=== PATIENT | male | born 1980 | race Caucasian/White ===

== ENCOUNTER 2018-05-23 16:25 | Inpatient (IN) | payer BC, OTHER ==
[~2018-05-23] VITALS: Ht 190.5 cm; Wt 77.1 kg
--- NOTE | 2018-05-23 18:45 | NUR ---
PRE ASSESSMENT PATIENT MET IN INTAKE OFFICE. VS BP138/87, HR 100, O2 99% HEIGHT IS 6'3" PATIENT IS BEING ADMITTED TO [facility] FOR A MEDICALLY SUPERVISED WITHDRAWAL FROM ALCOHOL ( WINE) HISTORY: ALCOHOL ( WINE) 4000ML/DAY FOR 8 DAYS LAST CONSUMED 4/ [address] HERE TODAY BUT HAD ALSO BEEN UP ALL NIGHT DRINKING WINE. PATIENT STATES HE HAS BEEN SOBER THE PAST 1.5 YEARS AND RELAPSED 8 DAYS AGO HE STATES HE HAS BEEN TO DETOX X 4 IN THE PAST AND REHAB X 2 PATIENT WILL BE ADMITTED TO THE FLOOR PATIENT IS MILDLY INTOXICATED, CIWA 12
--- NOTE | 2018-05-23 19:15 | NUR ---
ADMISSION NOTE Pt arrived on the unit at 1915 on 05/23/18 for medically supervised withdrawal from ETOH. Skin and body check completed, skin intact and no contraband found. Pt provided UDS. Pt is 65 and weighs 170 lbs. Pt is currently intoxicated from ETOH and is without withdrawal, last intake one hour prior to arrival. Pt presents with anxiety, agitation, flushed skin, headache 2/10, restlessness, slumped posture and is tearful. Pt has ETOH smell in breath. PEERLA. Respirations even and unlabored, lung sounds clear. Last BM 2 days ago, pt states This is normal for me, I dont feel constipated. Vital signs: 137/79, HR 76, RR 16, 02 100%, T 98.2, Pain 2/10. Substance Use History: Wine 4000 ml daily, last intake of 4000 ml today, last consumed 1 hour prior to arrival on the plane, at this rate for 8 days since relapse. Pt reports he typically gets the following S/S of withdrawal: Anxiety, restlessness, sweats, chills, nausea, tremors. Pt is full code, regular diet, NKA and on fall/seizure precautions. No known seizure hx. Pt reports PMH of anxiety, depression, HTN, PVCs (Had ECHO 6 months ago). Pt smokes 1 pack daily, pt states I really only smoke when I drink. Pt is not a candidate for MRSA, denies being hospitalized or in half-way in past 30 days. Pt reports having a PCP, Dr. Parra. Pt reports that his sister has hx of opioid abuse and mother has hx of ETOH abuse. Pt reports his longest period of sobriety was 1 year and 8 months, relapsed 8 days ago. 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 Pt states that his partner is his primary internal motivator to stay sober. Pt reports this admission will be different d/t his partner having more support and him being able to acknowledge that he wants to stay sober for mainly himself. Pt reports the following treatment history: [facility] in [place] for 35 days in 2015, Pt reports doing detox at ER in [place] in 2014 and [place] in 2014, and Recovery in [place] for 8 days in 2013. Pt has no kids, currently employed, and lives with his partner in [place]. Oriented pt to room and unit, educated pt about rules and expectations of unit and how to use call light. Pt verbalized understanding. Addendum: 05/24/18 at 0047 by MERON JUNG RN Additional: Initial DANNAWA lorared, pt acutely intoxicated.
[2018-05-23 20:00] VITALS: BP 137/79
[2018-05-23] MEDS ORDERED: ACETAMINOPHEN 325 MG TABLET PO PRN (20:45)
[2018-05-23] MEDS ORDERED: LORAZEPAM 1 MG TABLET PO PRN (20:45)
[2018-05-23] MEDS ORDERED: ONDANSETRON 4 MG/2 ML VIAL IM PRN (20:45)
[2018-05-23] MEDS ORDERED: MIRALAX 17 GM POWD.PACK PO PRN (20:45)
[2018-05-23] MEDS ORDERED: DICYCLOMINE HCL 20 MG TABLET PO PRN (20:45)
[2018-05-23] MEDS ORDERED: LORAZEPAM 2 MG/1 ML VIAL IM PRN (20:45)
[2018-05-23] MEDS ORDERED: IBUPROFEN 400 MG TABLET PO PRN (20:45)
[2018-05-23] MEDS ORDERED: diphenhydrAMINE 50 MG CAPSULE PO PRN (20:45)
[2018-05-23] MEDS ORDERED: LOPERAMIDE HCL 2 MG CAPSULE PO PRN ×2 (20:45)
[2018-05-23] MEDS ORDERED: THIAMINE HCL 200 MG/2 ML VIAL IM ONE (21:00)
[2018-05-23 21:25] LABS: BASOPHILS % (AUTO) 0.4 % (0.0-2.0); EOSINOPHILS % (AUTO) 0.4 % (0.0-7.0); HEMATOCRIT 43.7 % (36.7-47.1); HEMOGLOBIN 15.4 g/dL (12.5-16.3); LYMPHOCYTES % (AUTO) 37.3 % (20.5-51.5); MEAN CORPUSCULAR HEMOGLOBIN 31.7 uug (23.8-33.4); MEAN CORPUSCULAR HGB CONC 35 g/dL (32.5-36.3); MEAN CORPUSCULAR VOLUME 89.9 fL (73.0-96.2); MONOCYTES # (AUTO) 0.3 K/uL (2.0-10.0); MONOCYTES % (AUTO) 3.2 % (0.0-11.0); NEUTROPHILS # (AUTO) 6.3 K/uL (1.8-8.9); NEUTROPHILS % (AUTO) 58.7 % (38.5-71.5); PLATELET COUNT (AUTO) 165 K/uL (152-348); RED BLOOD CELL COUNT(AUTO) 4.86 MIL/uL (4.06-5.63); WHITE BLOOD COUNT (AUTO) 10.7 K/uL (3.6-10.2)
[2018-05-23 21:40] LABS: BILIRUBIN,TOTAL 0.7 mg/dL (0.2-1.0); MAGNESIUM 2.2 mg/dL (1.8-2.4); POTASSIUM 3.8 mmol/L (3.5-5.1); TOTAL PROTEIN, SERUM 8.2 g/dL (6.4-8.2)
[2018-05-23 21:54] LABS: THYROID STIMULATING HORMONE 0.374 mIU/mL (0.358-3.740)
[2018-05-23 22:53] LABS: *AMPHETAMINE, URINE NEGATIVE (NEGATIVE); *BARBITURATE, URINE NEGATIVE (NEGATIVE); *CANNABINOID, URINE NEGATIVE (NEGATIVE); *COCCAINE, URINE NEGATIVE (NEGATIVE); *OPIATE, URINE NEGATIVE (NEGATIVE); *PHENCYCLIDINE SCREEN,URINE NEGATIVE (NEGATIVE)
[2018-05-23] MEDS ORDERED: MULT-416 PO (23:41)
[2018-05-23] MEDS ORDERED: BUPR-51 PO (23:41)
[2018-05-23] MEDS ORDERED: AMOX-421 PO (23:41)
[2018-05-23] MEDS ORDERED: [UNRECOGNIZED DRUG - CODE] PO (23:41)
[2018-05-23] MEDS ORDERED: FLUT9.9S16 NS (23:41)
[2018-05-23] MEDS ORDERED: DISU250T7 PO (23:41)
[2018-05-23] MEDS ORDERED: CLON0.2T PO (23:41)
[2018-05-24] VITALS (9 sets, daily range): BP systolic 128–150; BP diastolic 77–101
--- NOTE | 2018-05-24 | NUR ---
CIWA DEFERRED Pt laying in bed with eyes closed, CIWA deferred, to be assessed when pt is awake per orders. Respirations even and unlabored. Safety measures in place. Call light within reach. Will continue to monitor.
[2018-05-24] MEDS: CLONIDINE HCL 0.1 MG TABLET PO PRN ×3 (00:35→23:28)
--- NOTE | 2018-05-24 00:35 | NUR ---
PRN VISTARIL, CLONIDINE AND MOTRIN ADMINISTERED Pt states, "I don't feel like I'm withdrawing yet, but I'm extremely anxious." Pt appears with increased agitation. BP 149/87 and HR 105. Pt complains of headache 03/02. Safety measures in place. Call light within reach. Will continue to monitor.
[2018-05-24] MEDS: HYDROXYZINE PAMOATE 25 MG CAPSULE PO PRN (00:36)
--- NOTE | 2018-05-24 01:35 | NUR ---
PRN VISTARIL, CLONIDINE AND MOTRIN REASSESSMENT Pt laying in bed with eyes closed, medications noted effective. Respirations even and unlabored. Safety measures in place. Call light within reach. Will continue to monitor.
--- NOTE | 2018-05-24 07:07 | NUR ---
END OF SHIFT Pt is a 38 y/o male admitted on 05/23/18 for ETOH withdrawal. Pt had PRN Ativan available. Pt came in acutely intoxicated, ETOH level 0.19 and was without evidence of withdrawal. Pt presented with anxiety, flushed skin, agitation, headache, slumped posture, depressed affect, elevated BP and HR. Pt refused scheduled thiamine inj, education about risks/benefits provided. PRN Vistaril, Clonidine and Motrin administered. All CIWAs deferred during shift d/t pt being without evidence of withdrawal and sleeping throughout shift. Pt slept 9 hours. Intake 1065 ml, void x 2, stool x 0. Safety measures in place. Call light within reach. Pts needs have been met. Endorsed to day shift nurse.
--- NOTE | 2018-05-24 07:40 | NUR ---
START OF SHIFT Received report from night baker nurse. Pt is lying in bed resting and easily arousable. He is a 38 yo male admitted to [facility] on 05/23 for ETOH withdrawal. Pt is A&O and ambulatory. PRN Ativan ordered for the management of withdrawal symptoms. Taper order pending. He presents with diaphoresis, moderate tremors, anxiety, and agitation. His facial expression appears worried and strained. His body movement is tense. He slept for 9 hours last night. Safety measures in place.
[2018-05-24] MEDS: THIAMINE HCL 100 MG TABLET PO SCH (08:20)
[2018-05-24] MEDS: MULTIVITAMINS,THERAPEUTIC TABLET PO SCH (08:20)
[2018-05-24] MEDS: LORAZEPAM 1 MG TABLET PO PRN ×2 (08:20→11:29)
[2018-05-24] MEDS: FOLIC ACID 1 MG TABLET PO SCH (08:20)
--- NOTE | 2018-05-24 08:25 | NUR ---
PRN Ativan Pt has anxiety, diaphoresis, chills, moderate tremors, and tense body movement. CIWA 18. PRN Ativan administered.
[2018-05-24] MEDS ORDERED: TUBERCULIN,PURIF.PROT.DERIV. 5 TU/0.1 ML TEST ID ONE (09:00)
--- NOTE | 2018-05-24 09:25 | NUR ---
PRN Ativan reassessment PRN Ativan effective. Pt reports that chills and sweating have improved. He states feeling more relaxed but continues to have mild tremors. Addendum: 05/24/18 at 1415 by KATHI BUTLER RN DANNIELLE boston 8.
[2018-05-24] MEDS ORDERED: AMOX1TAB16 PO (10:33)
[2018-05-24] MEDS: ONDANSETRON ODT 4 MG TAB.RAPDIS SL PRN (11:30)
--- NOTE | 2018-05-24 11:35 | NUR ---
PRN Ativan and Clonidine Pt reports feeling very anxious with tingling on the back of the back of the neck and chills. He has diaphoresis and tremors. B/P 150/101 and HR 97. CIWA score 16. PRN Ativan and Clonidine administered. Addendum: 05/24/18 at 1415 by KATHI BUTLER RN Pt also reports nausea without vomiting. PRN Zofran administered.
--- NOTE | 2018-05-24 13:00 | NUR ---
PRN Ativan, Clonidine, and Zofran reassessment PRN Ativan and Clonidine effective. Pt reports feeling less sweating, decreased tremors, and less anxiety. His body movement is more relaxed. Nausea is relieved. CIWA 9. B/P 143/94 and HR 94.
[2018-05-24] MEDS ORDERED: CLONIDINE HCL 0.2 MG TABLET PO SCH (13:15)
[2018-05-24] MEDS ORDERED: 5 DAY TAPER OF LORAZEPAM -SERENITY PROTOCOL PO PRN (14:45)
[2018-05-24] MEDS: SERTRALINE HCL 50 MG TABLET PO SCH (17:21)
--- NOTE | 2018-05-24 17:26 | NUR ---
PRN Ativan Pt reports feeling anxious, restless, with tingling on the back of the neck. He is diaphoretic. CIWA 12. PRN Ativan administered.
--- NOTE | 2018-05-24 19:20 | NUR ---
END OF SHIFT Report provided to power and recovery shift engineer nurse. Pt is resting in bed. He continues with PRN Ativan for the management of withdrawal symptoms. Taper ordered to start tomorrow. He has elevated B/P. PRN Ativan 2mg x2, PRN Ativan 1mg x1, PRN Zofran, and PRN Clonidine administered. Medications were effective. Pt's mood is depressed and affect is flat. He was started on Paxil by Psychiatrist. Last CIWA 8. Safety measures in place.
--- NOTE | 2018-05-24 19:30 | NUR ---
START OF SHIFT Pt is a 38 y/o male admitted on 05/23/18 for ETOH withdrawal. Pt will start a 4 day Ativan taper tomorrow, has PRN Ativan available at this time. Last CIWA 8 and PRN Ativan 2 mg x 2, Ativan 1 mg, Clonidine, and Zofran administered during day shift. New order for Trazodone PRN started. Upon assessment, pt presents with anxiety, agitation, flushed skin, sweats, headache, elevated BP, intermittent nausea, flat affect, lethargy, fatigue, and unkempt room. Medications due. Safety measures in place. Call light within reach. Will continue to monitor.
[2018-05-24] MEDS ORDERED: LORAZEPAM 1 MG TABLET PO PRN ×2 (21:00)
[2018-05-24] MEDS: MAG HYDROX/AL HYDROX/SIMETH 30 ML LIQUID UDC PO PRN (23:28)
--- NOTE | 2018-05-24 23:28 | NUR ---
PRN ATIVAN 2 MG, CLONIDINE, MYLANTA, AND TRAZODONE ADMINISTRATION CIWA 16. BP 148/100 and HR 84. Pt presents with anxiety, restlessness, sweats, intermittent chills, heartburn, and difficulty falling and staying asleep. Safety measures in place. Call light within reach. Will continue to monitor.
[2018-05-24] MEDS: TRAZODONE 100 MG TABLET PO PRN (23:29)
[2018-05-25 00:25] VITALS: BP 139/88
--- NOTE | 2018-05-25 00:28 | NUR ---
PRN ATIVAN, CLONIDINE, MYLANTA AND TRAZODONE REASSESSMENT CIWA 11. BP 139/88 and HR 81, Clonidine effective. Pt reports heartburn ceased. Pt presents with fatigue, laying in bed watching TV. Pt has improvement in anxiety, restlessness, sweats. Safety measures in place. Call light within reach. Will continue to monitor.
[2018-05-25 04:00] VITALS: BP 137/85
[2018-05-25 06:08] LABS: HEPATITIS B SURFACE AG Negative (Negative)
--- NOTE | 2018-05-25 07:11 | NUR ---
END OF SHIFT Pt is a 38 y/o male admitted on 05/23/18 for ETOH withdrawal. Pt will start a 4 day Ativan taper today. Pt presented with anxiety, agitation, flushed skin, sweats, headache, elevated BP, intermittent nausea, heartburn, flat affect, difficulty falling and staying asleep, and unkempt room. PRN Ativan 2 mg, Clonidine, Mylanta and Trazodone administered, effective in S/S of withdrawal AEB CIWA 16 lowered to CIWA 11 during shift. Pt slept 6 hours. Intake 1000 ml, void x 2, stool x 0. Safety measures in place. Call light within reach. Pts needs have been met. Endorsed to day shift nurse.
[2018-05-25 08:00] VITALS: BP 131/86
[2018-05-25] MEDS ORDERED: LORAZEPAM 1 MG TABLET PO PRN ×2 (08:00)
--- NOTE | 2018-05-25 08:10 | NUR ---
START OF SHIFT: RECEIVED PT A/O X 4. HE IS DISHEVELED. HE PRESENTS WITH ANXIOUS MOOD AND CONGRUENT AFFECT. HE REPORTS ANXIETY,RESTLESSNESS, INTERMITTENT SWEATS, SENSITIVITY TO LIGHT AND SOUND AND FATIGUE AND RESTLESSNESS. CIWA 15. ATIVAN TAPER ORDERED TO MANAGE S/S OF W/D. ENCOURAGED INCREASED FLUIDS TO ASSIST IN FACILITATING DETOX PROCESS.ENCOURAGED GROUP ATTENDANCE TO IMPROVE COPING SKILLS AND PREVENT RELAPSE. WILL CONTINUE TO MONITOR AND OFFER SAFE AND SUPPORTIVE ENVIRONMENT.
[2018-05-25] MEDS: MULTIVITAMINS,THERAPEUTIC TABLET PO SCH (09:23)
[2018-05-25] MEDS: FOLIC ACID 1 MG TABLET PO SCH (09:23)
[2018-05-25] MEDS: LORAZEPAM 1 MG TABLET PO SCH ×3 (09:23→20:34)
[2018-05-25] MEDS: SERTRALINE HCL 50 MG TABLET PO SCH (09:23)
[2018-05-25] MEDS: THIAMINE HCL 100 MG TABLET PO SCH (09:23)
[2018-05-25 12:00] VITALS: BP 136/89
[2018-05-25] MEDS: MAG HYDROX/AL HYDROX/SIMETH 30 ML LIQUID UDC PO PRN (14:12)
--- NOTE | 2018-05-25 14:20 | NUR ---
PRN GIVEN Pt c/o indigestion. Maalox 30ml PO PRN was given as ordered. Encoruaged increase fluid intake. Will continue to monitor.
--- NOTE | 2018-05-25 15:20 | NUR ---
Pt states Maalox was effective. Will continue to monitor and offer support.
[2018-05-25 16:00] VITALS: BP 133/83
--- NOTE | 2018-05-25 18:41 | NUR ---
END OF SHIFT: Pt continues on modified Ativan taper to manage s/s of w/d which include anxiety,sweats,restlessness and fatigue. Last CIWA 12. He states detox meds are effective. Maalox given for dyspepsia and effective. Pt attended groups and was compliant with increased fluids and medication. Will pass shift report to oncoming night nurse.
--- NOTE | 2018-05-25 19:30 | NUR ---
START OF SHIFT Received 38 year old male patient admitted on 05/23/18 for ETOH withdrawal. He is alert and oriented x4. He reports anxiety, restlessness, tremors, chills, and constipation. He is currently receiving a 4 day modified Ativan taper and tolerating well. Last CIWA: 12 at 1600. Breathing is even and unlabored, safety measures in place. Will monitor.
[2018-05-25 20:00] VITALS: BP 141/85
[2018-05-25] MEDS: TRAZODONE 100 MG TABLET PO PRN (20:33)
--- NOTE | 2018-05-25 20:33 | NUR ---
PRN TRAZODONE/MILK OF MAGNESIA Pt complains of difficulty falling asleep. Pt also reports constipation and states he has not had a BM since 05/23/18. Bowel sounds hypoactive, abdomen soft/slightly distended. PRN Trazodone and Milk of magnesia administered as ordered. Will monitor effectiveness.
[2018-05-25] MEDS: MAGNESIUM HYDROXIDE 30 ML LIQUID UDC PO PRN (20:35)
[2018-05-25] MEDS: AMOXICILLIN-CLAVUL 875-125MG TABLET PO SCH (20:35)
[2018-05-25] MEDS: FLUTICASONE PROP NASAL SPRAY 16 GM BOTTLE NS SCH (20:36)
--- NOTE | 2018-05-25 21:33 | NUR ---
PRN TRAZODONE/MILK OF MAGNESIA REASSESSMENT PRN medication ineffective. Pt still awake, reports he is feeling drowsy and is ready to sleep soon. No BM reported. Will continue to monitor.
[2018-05-26] VITALS: BP 135/86
--- NOTE | 2018-05-26 | NUR ---
CIWA DEFERRED 0000 CIWA deferred d/t pt lying in bed with eyes closed noted to be asleep. Breathing is even and unlabored, safety measures in place. Will continue to monitor.
--- NOTE | 2018-05-26 04:00 | NUR ---
VITALS REFUSED, CIWA DEFERRED 0400 vitals refused. CIWA deferred d/t pt lying in bed with eyes closed noted to be asleep. Breathing is even and unlabored, safety measures in place. Will monitor.
--- NOTE | 2018-05-26 07:04 | NUR ---
END OF SHIFT Pt is a 38 year old male patient admitted on 05/23/18 for ETOH withdrawal. He remains alert and oriented x4. He reported anxiety, agitation, restlessness, racing thoughts, tremors, chills, and constipation during the shift. He continues on a 4 day modified Ativan taper and tolerating well. At 2032 he received PRN Trazodone and Milk of Magnesia. No BM reported. He slept a total of 7 hrs, Intake:1855mL, Void:2, BM:0, CIWA:13 at 1999. Breathing is even and unlabored, safety measures in place. Will endorse to AM shift.
[2018-05-26] MEDS: CLONIDINE HCL 0.1 MG TABLET PO PRN (07:36)
--- NOTE | 2018-05-26 07:45 | NUR ---
START OF SHIFT: RECEIVED PT A/O X 4. HE PRESENTS WITH ANXIOUS MOOD AND RESTRICTED AFFECT. HE REPORTS ANXIETY,RESTLESSNESS AND SWEATS. HIS FACE IS FLUSHED.ATIVAN TAPER IN PROGRESS TO MANAGE S/S OF W/D. CIWA 13. BP ELEVATED. BP 172/100 P 102 R 16 T 98.2 O2SAT 100%. HE IS ASYMPTOMATIC. PRN CLONIDINE GIVEN TO REDUCE BP. WILL MONITOR EFFECTIVENESS. ABT CONTINUES FOR REPORTED SINUS INFECTION. ENCOURAGED GROUP ATTENDANCE TO IMPROVE COPING SKILLS AD PREVENT RELAPSE. WILL CONTINUE TO MONITOR AND PROVIDE SUPPORT.
[2018-05-26 08:00] VITALS: BP 172/100
--- NOTE | 2018-05-26 08:50 | NUR ---
PRN CLONIDINE EFFECTIVE. BP 134/84 P 102
[2018-05-26 09:00] VITALS: BP 131/84
[2018-05-26] MEDS ORDERED: SERTRALINE HCL 50 MG TABLET PO SCH (09:00)
[2018-05-26] MEDS: THIAMINE HCL 100 MG TABLET PO SCH (09:00)
[2018-05-26] MEDS: LORAZEPAM 1 MG TABLET PO SCH ×4 (09:45→20:22)
[2018-05-26] MEDS: FLUTICASONE PROP NASAL SPRAY 16 GM BOTTLE NS SCH ×2 (09:45→20:21)
[2018-05-26] MEDS: AMOXICILLIN-CLAVUL 875-125MG TABLET PO SCH ×2 (09:45→20:22)
[2018-05-26] MEDS: SERTRALINE HCL 100 MG TABLET PO SCH (09:45)
[2018-05-26] MEDS: MULTIVITAMINS,THERAPEUTIC TABLET PO SCH (09:46)
[2018-05-26] MEDS: FOLIC ACID 1 MG TABLET PO SCH (09:46)
[2018-05-26] MEDS: LACTOBACILLUS RHAMNOSUS GG 1 EACH CAPSULE PO SCH (09:46)
[2018-05-26 12:00] VITALS: BP 133/80
--- NOTE | 2018-05-26 13:15 | NUR ---
Client was prompted to attend twice daily group counseling sessions.
[2018-05-26 16:00] VITALS: BP 151/87
--- NOTE | 2018-05-26 18:50 | NUR ---
END OF SHIFT: Pt continues on Ativan taper to manage s/s of w/d which include anxiety,restlessness ,intermittent sweats and flushed complexion. Last CIWA 9 He attended groups and is compliant with meds. His BP became elevated earlier in shift and Clonidine given and effective. Will pass shift report to oncoming pre billing specialist nurse.
--- NOTE | 2018-05-26 19:30 | NUR ---
START OF SHIFT Received 38 year old male patient admitted on 05/23/18 for ETOH withdrawal. Pt is alert and oriented x4. He is noted with flushed face, anxiety, restlessness, racing thoughts, and complains of abdominal cramps related to constipation. He continues on a 4 day modified Ativan taper and is tolerating well. Per endorsement, he received PRN Clonidine, and Miralax. Pt reports having very small BM and still feels constipated. Last CIWA:9. Breathing is even and unlabored, safety measures in place. Will monitor.
[2018-05-26 20:00] VITALS: BP 140/82
[2018-05-26] MEDS: TRAZODONE 100 MG TABLET PO PRN (20:21)
--- NOTE | 2018-05-26 20:21 | NUR ---
PRN TRAZODONE/MILK OF MAGNESIA Pt complains of inability to fall asleep. Pt also complains of constipation and states " I had very small BM, I still feel constipated." PRN Trazodone and Milk of Magnesia administered as ordered. Safety measures in place. Will monitor effectiveness.
[2018-05-26] MEDS: MAGNESIUM HYDROXIDE 30 ML LIQUID UDC PO PRN (20:22)
--- NOTE | 2018-05-26 21:21 | NUR ---
PRN TRAZODONE/MILK OF MAGNESIA REASSESSMENT PRN Trazodone ineffective. Pt still awake, appears drowsy and reports he is ready to sleep soon. No reports of BM. Will continue to monitor.
--- NOTE | 2018-05-27 | NUR ---
VITALS REFUSED/CIWA DEFERRED 0000 vitals refused. CIWA deferred d/t pt lying in bed with eyes closed noted to be asleep. Breathing is even and unlabored, safety measures in place. Will monitor.
--- NOTE | 2018-05-27 04:00 | NUR ---
VITALS REFUSED, CIWA DEFERRED 0400 vitals refused. CIWA deferred. Pt is lying in bed with eyes closed noted to be asleep. Breathing is even and unlabored, safety measures in place. Will continue to monitor.
--- NOTE | 2018-05-27 07:08 | NUR ---
END OF SHIFT Pt is a 38 year old male patient admitted on 05/23/18 for ETOH withdrawal. He remains alert and oriented x4. He was noted with flushed face, anxiety, restlessness, racing thoughts, and complained of constipation. He continues on a 4 day modified Ativan taper and is tolerating well. At 2020 he received PRN Trazodone and Milk of Magnesia. No BM noted. He slept a total of 8 hrs, Intake:1,296mL, Void: x1, BM:0, Last CIWA:9 at 1999. Breathing is even and unlabored, safety measures in place. Will endorse to AM shift.
--- NOTE | 2018-05-27 07:40 | NUR ---
START OF SHIFT Client is in room, he is a/o x 4, he is fully ambulatory, pacing in his room, he stated, "I am very anxious, I'm used to either drink alcohol or take other meds to calm me down." Client noted with dark circles under eyes, dry lips, and flushed face. Client presents with anxious mood, flat affect, enlarged pupils, tremors, and skin warm/clammy. Scattered dirty clothes on the floor. Encourage client to keep his surroundings clean and free of clutter to prevent a fall, he verbalized understanding. Last WA 9 @ 1999. PRN trazodone 100mg PO for insomnia, client slept 8 hrs. PRN Milk of Magnesia for constipation. Encourage client to increase PO fluid to facilitate detox and assist with constipation. Encourage client to attend group therapy to learn skills to maintain sober. Seizure precautions rendered. Call light within reach.
[2018-05-27 08:02] VITALS: BP 155/82
[2018-05-27] MEDS: FLUTICASONE PROP NASAL SPRAY 16 GM BOTTLE NS SCH ×2 (08:33→21:05)
[2018-05-27] MEDS: AMOXICILLIN-CLAVUL 875-125MG TABLET PO SCH ×2 (08:33→21:05)
[2018-05-27] MEDS: MULTIVITAMINS,THERAPEUTIC TABLET PO SCH (08:34)
[2018-05-27] MEDS: SERTRALINE HCL 100 MG TABLET PO SCH (08:34)
[2018-05-27] MEDS: THIAMINE HCL 100 MG TABLET PO SCH (08:34)
[2018-05-27] MEDS: FOLIC ACID 1 MG TABLET PO SCH (08:34)
[2018-05-27] MEDS: LORAZEPAM 1 MG TABLET PO SCH ×3 (08:34→21:06)
[2018-05-27] MEDS: LACTOBACILLUS RHAMNOSUS GG 1 EACH CAPSULE PO SCH (08:34)
[2018-05-27] MEDS: ONDANSETRON ODT 4 MG TAB.RAPDIS SL PRN (08:38)
--- NOTE | 2018-05-27 08:38 | NUR ---
PRN Zofran 4mg SL for intermittent nausea, no episodes of emesis. Call light within reach.
--- NOTE | 2018-05-27 09:38 | NUR ---
Reassess PRN Zofran 4mg, client reports some relief from nausea, no episodes of emesis. Call light within reach.
[2018-05-27] MEDS: HYDROXYZINE PAMOATE 25 MG CAPSULE PO PRN (10:05)
--- NOTE | 2018-05-27 10:05 | NUR ---
PRN Vistaril 50mg PO for anxiety, Clonidine 0.2mg PO for agitation. Deep breathing techniques demonstrated to client, reinforcement needed. Call light within reach.
[2018-05-27] MEDS: CLONIDINE HCL 0.1 MG TABLET PO PRN ×3 (10:07→21:06)
--- NOTE | 2018-05-27 11:05 | NUR ---
Reassess PRN Vistaril 50mg & Clonidine 0.2mg, client able to join group therapy, he stated, "I feel somewhat less anxious." Call light within reach.
[2018-05-27 12:18] VITALS: BP 126/85
--- NOTE | 2018-05-27 16:41 | NUR ---
PRN Clonidine 0.2mg PO for agitation and anxiety. Deep breathing techniques demonstrated to client, reinforcement needed. Call light within reach.
[2018-05-27 16:56] VITALS: BP 144/91
--- NOTE | 2018-05-27 17:41 | NUR ---
Reassess PRN Clonidine 0.2mg, client continues to present with agitation and anxiety, but he is planning to go down to the cafeteria for dinner with his peers. Call light within reach.
[2018-05-27] MEDS: MAG HYDROX/AL HYDROX/SIMETH 30 ML LIQUID UDC PO PRN (18:42)
--- NOTE | 2018-05-27 18:42 | NUR ---
PRN Maalox 30mL PO for heartburn. Call light within reach.
--- NOTE | 2018-05-27 19:06 | NUR ---
END OF SHIFT Client is in group therapy, a/o x 4. Client continues to present with anxious mood, flat affect, tremors, clammy, chills, and irritability. PRN administered and noted per protocol. Incoming nurse to reassess PRN Maalox 30mg for heartburn. Last CIWA 14 @ 1600. Adequate PO fluid intake 3500mL, void x 12, stool x 1. Client is compliant with group therapy. Call light within reach.
--- NOTE | 2018-05-27 19:30 | NUR ---
Start of Shift Pt admitted 05/23/18 for medically managed withdrawal from ETOH. Pt is listed as a full code, with NKAs. Pts PPH listed as Anxiety, depression and Substance abuse, with 4 previous detoxs, and 2 prior rehabs, and PMH of HTN and PVCs, with no seizure hx. Pt is on day 3 of a 4 day Ativan taper. On assessment, pt appears anxious and agitated, fearful and suspicious, with avoidant eye contact, flat affect, easily overwhelmed, and depressed. Report of heartburn prior to shift treated with Maalox, pt reports improvement. Pt requesting Clonidine for anxiety and sleep aid with eveing med (Pt has received 2 doses of Clonidine, and 1 dose of Vistaril during day shift PRNs). Full safety precautions remain in place, with bed locked and in lowest position, siderails up x 2, call milton within reach and frequent rounding. Will monitor patient for any s/sxs distress or withdrawal and attend promptly.
--- NOTE | 2018-05-27 19:42 | NUR ---
PRN Reassessment Maalox 30ml PO given 1 hour prior for heartburn. Currently pt reports improvement, Med effective. Will monitor pt for any s/s's distress or w/d, and attend
[2018-05-27 20:00] VITALS: BP 138/74
--- NOTE | 2018-05-27 21:06 | NUR ---
PRN Med Clonidine 0.2mg PO given for anxiety/agitation, sleep aid. Will continue to monitor, reassessing in 1 hour, and attending to all s/sx's distress or w/d. promptly
--- NOTE | 2018-05-27 22:06 | NUR ---
PRN Reassessment Clonidine 0.2mg PO given 1 hour prior for anxiety/agitation. At present pt is sleeping, RR 14, even and nonlabored. Med effective. Will continue to monitor for any s/sx's distress or w/d.
[2018-05-28] VITALS: BP 128/68
--- NOTE | 2018-05-28 | NUR ---
CIWA Deferred VS's obtained, and stable. CIWA deferred. RR 15, even and nonlabored. Will continue to monitor and promptly attend to all s/sx's distress and w/d.
[2018-05-28 04:00] VITALS: BP 130/86
--- NOTE | 2018-05-28 04:00 | NUR ---
CIWA Deferred VS's obtained, and stable. CIWA deferred. RR 16, even and nonlabored. Will continue to monitor and promptly attend to all s/sx's distress and w/d.
--- NOTE | 2018-05-28 07:12 | NUR ---
End of Shift Endorsement given to day nurse. Pt admitted 05/23/18 for medically managed withdrawal from ETOH. Pt is listed as a full code, with NKAs. Pts PPH listed as Anxiety, depression and Substance abuse, with 4 previous detoxs, and 2 prior rehabs, and PMH of HTN and PVCs, with no seizure hx. Pt is on day 4 of a 4 day Ativan taper. Pt slept for 5 hours, with 1355 mls intake and 2 voids. Last CIWA was 11 at 0500. Pt remains anxious and agitated/figety, but maintains Hes allright. Pt disheveled with uncombed hair. Moisure observed on forehead, tremors can be felt, not seen, nasal congestion. Eye contact remains avoidant, pt appears nervous/denies any needs, but appears preoccupied, with racing thoughts Pt able to discuss his job during night, transition with moving. Pt denies SI/HI or A/V hallucinations. Only PRN for shift was Clonidine 0.2mg PO, no c/o heartburn. Full safety precautions remain in place with bed locked and in lowest position, siderails raised x 2, call milton within reach and frequent rounds made.
[2018-05-28] MEDS: CLONIDINE HCL 0.1 MG TABLET PO PRN ×3 (07:24→20:48)
--- NOTE | 2018-05-28 07:24 | NUR ---
START OF SHIFT & PRN Clonidine 0.2mg PO for anxiety. Rcvd endorse from ongoing nurse, client is sitting at the edge of the bed, a/o x 4. He presents with anxious mood, flat affect, watery eyes, flushed face, moist skin, hand-wringing, avoidant gaze, and tremors felt. Client stated, "I feel extremely anxious, that is one of the reasons I drink, just to help me cope with my anxiety, well that and clonidine." He reports restless legs, nausea, abdominal cramps, sweats, decrease appetite, and fatigue. Encourage client to increase PO fluid as tolerated to facilitate detox. Encourage client to participate in group therapy. PRN administered and noted per protocol. Last CIWA 11 @ 0500. Client is on last of 4 day Ativan taper. Seizure precautions in place. call light within reach.
--- NOTE | 2018-05-28 08:00 | NUR ---
Endorsed client to am nurse for continuity of care and reassess of PRN clonidine.
--- NOTE | 2018-05-28 08:03 | NUR ---
Assumed care of Pt. Will continue to monitor and manage s/s of w/d.
[2018-05-28 08:07] VITALS: BP 111/71
[2018-05-28] MEDS: LACTOBACILLUS RHAMNOSUS GG 1 EACH CAPSULE PO SCH (08:18)
[2018-05-28] MEDS: FOLIC ACID 1 MG TABLET PO SCH (08:19)
[2018-05-28] MEDS: MULTIVITAMINS,THERAPEUTIC TABLET PO SCH (08:19)
[2018-05-28] MEDS: THIAMINE HCL 100 MG TABLET PO SCH (08:19)
[2018-05-28] MEDS: SERTRALINE HCL 100 MG TABLET PO SCH (08:19)
[2018-05-28] MEDS: FLUTICASONE PROP NASAL SPRAY 16 GM BOTTLE NS SCH ×2 (08:19→20:47)
[2018-05-28] MEDS: AMOXICILLIN-CLAVUL 875-125MG TABLET PO SCH (08:19)
--- NOTE | 2018-05-28 08:24 | NUR ---
Pt states the Clonidine PRN was effective in reducing anxiety. He states he feels less anxious.
[2018-05-28] MEDS ORDERED: LORAZEPAM 1 MG TABLET PO SCH (09:00)
[2018-05-28] MEDS: HYDROXYZINE PAMOATE 25 MG CAPSULE PO PRN (11:59)
[2018-05-28 12:00] VITALS: BP 128/77
--- NOTE | 2018-05-28 12:00 | NUR ---
Pt c/o of anxiety and restlessness.PRN Vistaril administered as ordered. Will monitor effectiveness of PRN.
--- NOTE | 2018-05-28 13:00 | NUR ---
Pt states the Vistaril was not effective but is willing to give it a little more time before taking another PRN. He states he is still anxious.
--- NOTE | 2018-05-28 13:45 | NUR ---
PRN Clonidine given as Pt c/o anxiety and restlessness.Will monitor effectiveness of PRN med.
--- NOTE | 2018-05-28 14:45 | NUR ---
PRN Clonidine was effective. Pt states he feels much better . Will continue to monitor and offer support.
[2018-05-28 16:00] VITALS: BP 117/71
--- NOTE | 2018-05-28 18:52 | NUR ---
END OF SHIFT: Pt took last dose of Ativan taper to manage s/s of w/d this AM. which include anxiety and restlessness Last CIWA 7 He attended groups and is compliant with meds. Clonidine PRN x 2 given and effective and Vistaril PRN given and not effective. He is scheduled for discharge in AM tomorrow. He states he is motivated to stay sober. He was compliant with increased fluids. Will pass shift report to oncoming restaurant shift supervisor nurse.
--- NOTE | 2018-05-28 19:45 | NUR ---
Start of Shift Note Received 38 y/o male px, admitted for medically supervised withdrawal from ETOH. Px is to be D/C tomorrow, 05/29/2018. Px completed 4 day modified Ativan taper. Px tolerated it. Last CIWA reported by AM shift nurse is 7. During the rounds at 1945, px is awake on bed in fowlers position watching TV. Px appears anxious with good eye contact. Few drinks noted on top of the bed side table. Px was asked if he is ready for tomorrow's D/C. Px stated "Yes I am ready but I am pretty anxious tonight. My anxiety is 8/10. I also have a little bit of H/A, it's 4/10. Last night, I woke up and I was soak in sweat. Can I have clonidine and Trazodone tonight?" Px was reassured. Bed on lowest position, side rails up padded and call light within reach. Well continue to monitor.
[2018-05-28 20:00] VITALS: BP 135/80
[2018-05-28] MEDS: TRAZODONE 100 MG TABLET PO PRN (20:48)
--- NOTE | 2018-05-28 20:48 | NUR ---
PRN medications Tylenol 325 mg/tab, 2 tabs given PO for H/A of 4/10. Clonidine 0.2 mg given PO for increased anxiety. Trazodone 100 mg/tab, 1 tab given PO for insomnia. We'll continue to monitor.
--- NOTE | 2018-05-28 21:50 | NUR ---
Reassessment of H/A Px stated that his pain has gone after an hour of administration of Tylenol 650 mg PO.
--- NOTE | 2018-05-28 21:50 | NUR ---
Reassessment of anxiety Px stated that his anxiety improved from 8/10 to 5/10 after administration of Clonidine 0.2 mg PO.
[2018-05-29] VITALS: BP 109/61
--- NOTE | 2018-05-29 04:00 | NUR ---
CIWA deferred CIWA deferred at 0000 and 0400 due to the px is asleep, to assess if the px is awake per doctor's order. We'll continue to monitor.
--- NOTE | 2018-05-29 07:10 | NUR ---
End of Shift Note Px is to be D/C today, 05/29/2018. At 2047, px received Tylenol 650 mg PO for H/A, it was effective. Clonidine 0.2 mg given PO for anxiety, it was effective. Trazodone 100 mg given PO for insomnia, it was effective. Px slept for 8 hours. Px oral intake is 2 L, voided 4x, without BM. Last CIWA 9. At 0630, px requested to go to take a shower. Bed on lowest position, side rails up padded and call light within reach. Px endorsed to AM shift nurse. Well continue to monitor.
--- NOTE | 2018-05-29 07:30 | NUR ---
START OF SHIFT Pt 38 y/o male admitted for etoh withdrawal. Pt received in room awake. Pt alert and oriented to name, place, and time. Perrla. Skin warm and dry to touch. Respirations even and unlabored. Pt is scheduled to be discharged today to [facility]. Pt appears excited about discharged. It was reported that pt slept for 7 hours last night. Last reported ciwa=9 @ 2100. Bed on lowest position with side rails x2 up for safety. Call light within reach. It was reported that pt received tylenol po prn per MD order for c/o headache last night. Pt also received catapres po prn per MD order for anxiety. It was reported that pt received trazadone po prn per MD order for insomnia last night.
[2018-05-29 08:00] VITALS: BP 134/78
--- NOTE | 2018-05-29 08:00 | NUR ---
CIWA Pt with ciwa=5. Pt anxious about discharge.
[2018-05-29] MEDS: SERTRALINE HCL 100 MG TABLET PO SCH (08:17)
[2018-05-29] MEDS: THIAMINE HCL 100 MG TABLET PO SCH (08:17)
[2018-05-29 08:18] VITALS: BP 134/80
[2018-05-29] MEDS: CLONIDINE HCL 0.1 MG TABLET PO PRN (08:18)
[2018-05-29] MEDS: FOLIC ACID 1 MG TABLET PO SCH (08:18)
[2018-05-29] MEDS: FLUTICASONE PROP NASAL SPRAY 16 GM BOTTLE NS SCH (08:18)
[2018-05-29] MEDS: MULTIVITAMINS,THERAPEUTIC TABLET PO SCH (08:18)
[2018-05-29] MEDS: LACTOBACILLUS RHAMNOSUS GG 1 EACH CAPSULE PO SCH (08:18)
[2018-05-29] MEDS: HYDROXYZINE PAMOATE 25 MG CAPSULE PO PRN (08:19)
--- NOTE | 2018-05-29 08:29 | NUR ---
PRN VISTARIL Pt states feels anxious. Pt states is anxious about discharge. Pt fidgety. Vistaril po prn per MD order given and tolerated well.
--- NOTE | 2018-05-29 08:30 | NUR ---
PRN CATAPRES Pt anxious, observed tapping foot and fidgety. Catapres po prn per MD order given and tolerated well.
--- NOTE | 2018-05-29 09:29 | NUR ---
PRN VISTARIL EVAL Pt states feels less anxious.
--- NOTE | 2018-05-29 09:30 | NUR ---
PRN CATAPRES EVAL Pt states feels less anxious.
[2018-05-29] MEDS ORDERED: TRAZ-147 PO (09:36)
[2018-05-29] MEDS ORDERED: HYDR-3895 PO (09:36)
[2018-05-29] MEDS ORDERED: CLON0.1T14 PO (09:36)
[2018-05-29] MEDS ORDERED: FLUT16SP NS (09:36)
[2018-05-29] MEDS ORDERED: SERT100T12 PO (09:36)
--- NOTE | 2018-05-29 10:15 | NUR ---
DISCHARGE Pt 38 y/o male admitted for etoh withdrawal. Pt alert and oriented to name, place, and time. Perrla. Skin warm and dry to touch. Respirations even and unlabored. No hand tremors noted. Pt excited about discharge. Pt discharged to [facility] via private transport. Pt denies any SI/HI. Vs wnl. No belongings in cassette noted. Belongings in cabinet, home medications, prescriptions, and discharge papers packed in pt bag. No distress noted.
== END 2018-05-29 10:15 | disposition other institution (70) | DRG 895 ==
LOC: SRC 18:15
PROVIDERS: ADMIT Family Medicine Addiction Medicine; ATTEND Family Medicine Addiction Medicine
PROC: HZ2ZZZZ Detoxification Services for Substance Abuse Treatment (ICD-10-PCS; principal; 2018-05-23)
PROC: HZ41ZZZ Group Counseling for Substance Abuse Treatment, Behavioral (ICD-10-PCS; 2018-05-24)
DX: F10.239 Alcohol dependence with withdrawal, unspecified (principal); F33.2 Major depressive disorder, recurrent severe without psychotic features; Y90.9 Presence of alcohol in blood, level not specified; F41.0 Panic disorder [episodic paroxysmal anxiety]; Z81.1 Family history of alcohol abuse and dependence; Z81.3 Family history of other psychoactive substance abuse and dependence; Z82.49 Family history of ischemic heart disease and other diseases of the circulatory system; F17.210 Nicotine dependence, cigarettes, uncomplicated; J01.90 Acute sinusitis, unspecified; B96.89 Other specified bacterial agents as the cause of diseases classified elsewhere; Z79.899 Other long term (current) drug therapy; G47.00 Insomnia, unspecified; F41.1 Generalized anxiety disorder; K59.00 Constipation, unspecified
CPT/HCPCS: 36415; 70030-TC; 80307; 83690; 83735; 84443; 85025; 86580; 86592; 86705; 86803; 87340; 87806; A4663; G0480; J3535; Q0162